=== PATIENT | female | born 2000 | race Caucasian/White ===

== ENCOUNTER 2024-04-20 21:23 | Emergency (ER) | payer OTHER, SELFPAY ==
[2024-04-20 21:27] VITALS: BP 163/92
[2024-04-20 22:04] LABS: HCG, Urine Qualitative Screen Negative; Urine Albumin Negative (Neg - Trace); Urine Bilirubin Negative (Negative); Urine Character Clear (Clear); Urine Color Yellow; Urine Glucose Negative (Negative); Urine Ketone Negative (Negative); Urine Leukocyte Negative (Negative); Urine Nitrite Positive (Negative); Urine Occult Blood Negative (Negative); Urine Specific Gravity 1.005 (<1.030); Urine Urobilinogen Negative (Neg - 1+)
[2024-04-20 22:05] LABS: % Basophils 0.6 % (0-2); % Eosinophils 1.5 % (0-6); % Immature Granulocytes 0.3 % (0-0.5); % Lymphocytes 15.9 % (20.5-51.1); % Monocytes 7.8 % (1.7-9.3); % Neutrophils 73.9 % (42.2-75.2); Absolute Basophils 0.1 10^3/uL (0-0.2); Absolute Eosinophils 0.2 10^3/uL (0-0.7); Absolute Neutrophils 9.2 10^3/uL (1.4-6.5); Hematocrit 32.9 % (37.0-47.0); Hemoglobin 11.5 g/dL (12.0-16.0); Mean Corpuscular Hgb 30.3 pg (27.0-31.0); Mean Corpuscular Volume 86.8 fL (81.0-99.0); Mean Platelet Volume 9.4 fL (7.4-10.4); Nucleated Red Blood Cells % 0 %; Platelet Count 280 10^3/uL (130-400); Red Blood Cell Count 3.79 10^6/uL (4.20-5.40); Red Cell Dist. Width 12.2 % (11.5-14.5); White Blood Cell Count 12.4 10^3/uL (4.8-10.8)
[2024-04-20 22:12] LABS: Urine Red Blood Cell None Seen /HPF (0-2); Urine White Cell 0-2 /HPF (0-5)
[2024-04-20 22:33] LABS: ALT (SGPT) 24 U/L (0-35); AST (SGOT) 44 U/L (14-36); Albumin 4.6 g/dl (3.5-5.0); Alkaline Phosphatase 59 U/L (38-126); Blood Urea Nitrogen 12 mg/dl (7-17); Carbon Dioxide 25 mmol/L (22-30); Chloride 102 mmol/L (98-107); Glucose 93 mg/dl (70-99); Potassium 3.8 mmol/L (3.5-5.1); Sodium 139 mmol/L (135-145); Total Bilirubin 0.7 mg/dl (0.2-1.3); Total Protein 7.3 g/dl (6.3-8.2); eGFR > 60.00
[2024-04-20] MEDS: ZOFRAN 4 MG IV (22:42)
[2024-04-20] MEDS: MORPHINE SULFATE 4 MG IV (22:42)
[2024-04-20] MEDS: OMNIPAQUE 50 ML PO (22:43)
[2024-04-20 22:53] VITALS: BP 130/94
[2024-04-21] MEDS: MORPHINE SULFATE 4 MG IV (00:38)
--- NOTE | 2024-04-21 01:55 | ED.GENMED ---
History of Present Illness
General
Chief Complaint: Abdominal Pain
Time Seen by Provider: 04/20/24 21:39
History of Present Illness
History of Present Illness:
23-year-old female presents emerged from complaining of right lower quadrant abdominal pain for the past 1 to 2 days. No fevers. Nausea.
Past History
Social History
Tobacco: Non-smoker
Alcohol: None
Phy Exam
Physical Exam
Physical Exam:
Physical Exam
General: no apparent distress, not acutely ill
Neck: supple. no meningeal signs. normal posterior pharynx
Heart: s1/s2 regular rate and rhythm, no murmur. equal radial
pulses.
HEENT: Pupils equal round reactive to light, EOMI
Lungs: no acute respiratory distress. clear bilaterally
Abdomen: normal bowel sounds. Right lower quadrant tenderness, no rebound or guarding. no CVAT
Neuro: alert and oriented. no focal neurological deficits cranial nerves II through XII intact
Skin: no rash
Psychiatric: well kept. interactive and cooperative
Extremities: no edema. no calf tenderness. negative homans. good distal pulses
Course
Orders/Labs/Results
Orders:
Orders
04/20/24 21:44
IV Insert/Care/Rem.- Treatment PRN
04/20/24 21:45
Test Result ONCE
04/20/24 21:57
Complete Blood Count/With Diff Urgent
Comprehensive Metabolic Panel Urgent
HCG, Urine Qualitative Screen Urgent
Date Specimen was Collected: 04/20/24
Time Specimen was Collected: 21:55
Urinalysis Reflex To Culture Urgent
Date Specimen was Collected: 04/20/24
Time Specimen was Collected: 21:55
Urine Microscopic Reflex Cult Urgent
Urine Culture Urgent
ALON Source: U
Specimen Description:
Date Specimen was Collected: 04/20/24
Time Specimen was Collected: 21:55
04/20/24 21:58
Iohexol [Omnipaque] See Protocol PO NOW STA
Morphine Sulfate 4 mg IV NOW STA
Ondansetron Injectable [Zofran] 4 mg IV NOW STA
US Abdomen - Appendix Only Urgent
Comment:
Reason For Exam: RLQ abd pain
04/21/24 00:26
Morphine Sulfate 4 mg IV NOW STA
04/21/24 00:45
CT Abd/pel W Iv And Oral Contr Urgent
Reason For Exam: RLQ abd pain
04/21/24 01:31
CefTRIAXone [Rocephin] 1,000 mg IV NOW STA
Abnormal Lab Results
04/20/24
21:57
WBC 12.4 H 10^3/uL
(4.8-10.8)
RBC 3.79 L 10^6/uL
(4.20-5.40)
Hgb 11.5 L g/dL
(12.0-16.0)
Hct 32.9 L %
(37.0-47.0)
Absolute Neuts (auto) 9.2 H 10^3/uL
(1.4-6.5)
Absolute Monos (auto) 1.0 H 10^3/uL
(0.1-0.6)
Lymphocytes % 15.9 L %
(20.5-51.1)
Creatinine 1.1 H mg/dL
(0.6-1.0)
AST 44 H U/L
(14-36)
Urine Nitrite (Reflex) Positive A
(Negative)
04/20/24 21:57
04/20/24 21:57
Vital Signs
Initial and Last Documented VS:
Initial Vital Signs
Temp Pulse Resp BP Pulse Ox
98.4 F 94 16 163/92 99
04/20/24 21:27 04/20/24 21:27 04/20/24 21:27 04/20/24 21:27 04/20/24 21:27
Last Documented Vital Signs
Temp Pulse Resp BP Pulse Ox
97.9 F 85 20 130/94 96
04/20/24 22:53 04/20/24 22:53 04/20/24 22:53 04/20/24 22:53 04/20/24 22:53
MDM/Problems Addressed
Differential Diagnosis Includes:
Appendicitis, pyelonephritis, kidney stone
MDM/Problems Addressed:
23-year-old female with pyelonephritis. No signs appendicitis. Treat with rocephin and keflex. F/u with primary care. Return precautions given.
Acute Exacerbation and/or Progression of Chronic Illness: Other (interstitial cystitis)
*Radiology
Radiology exam reviewed: radiology read reviewed (CT abdomen pelvis shows pyelonephritis)
*Pulse Oximetry
Patient hypoxic: no
*Critical Care Note
Total Time (30-74mins, 75-104mins- exclusive of procedures): Not Applicable
Patient Management
Social determinants of health affecting care: Living situation and Strong social support
Escalation/DeEscalation of care consider admission/obs:
Admit not indicated
ED Attending Note
-
Portions of this chart may have been created with voice recognition software.� Occasional wrong word or��sound alike� substitutions may have occurred due to the inherent limitations of voice recognition software.
Discharge Plan
Departure
Patient Disposition: Home (Routine Discharge)
Date of Disposition: 04/21/24
Time of Disposition: 01:58
Patient with high blood pressure during this ER visit?: Yes
Condition: Good
Discharge Problem:
Pyelonephritis
Instructions: Urinary tract infections in adults, BLOOD PRESSURE
Prescriptions:
New
cephalexin 500 mg capsule
500 mg PO BID 7 Days Qty: 14 0RF
No Action
multivitamin [One Daily Multivitamin] 1 EACH tablet
1 tab PO DAILY
Vitamin D
1 tab PO DAILY
sulfamethoxazole-trimethoprim 800 MG/160 MG tablet
1 tab PO BID Qty: 10 0RF
ciprofloxacin HCl [Cipro] 250 MG tablet
250 mg PO BID 3 Days 0RF
phenazopyridine [Pyridium] 100 MG tablet
100 mg PO Q8HPRN PRN (Reason: urinary pain) Qty: 7 0RF
ciprofloxacin HCl 250 MG tablet
250 mg PO BID Qty: 10 0RF
sulfamethoxazole-trimethoprim 1 TABLET tablet
1 tab PO BID Qty: 20 0RF
Referrals:
RAIMUNDO BRADFORD MD [Family Provider] - Call in 1-3 days for appt
Interventions
Interventions:
*Risk Screen - Suicide Last Done: 04/20/24 21:27
*General Assessment Last Done: 04/20/24 21:27
*Neglect/Abuse Screening Last Done: 04/20/24 21:27
ED- Fall Risk Assessment Last Done: 04/20/24 21:59
PT-Fghjei-Djhbevlicp Assessment Last Done: 04/20/24 21:56
Discharge Date and Time
Print Language: NAMIBIAN
[2024-04-21] MEDS: ROCEPHIN 1000 MG IV (01:58)
[2024-04-21 02:37] VITALS: BP 128/88
== END 2024-04-21 02:38 | disposition home or self-care (01) ==
LOC: EMR 21:23
PROVIDERS: EMERGENCY PHYSICIAN Emergency Medicine; FAMILY PHYSICIAN Student in an Organized Health Care Education/Training Program
DX: N12 Tubulo-interstitial nephritis, not specified as acute or chronic (principal)
CPT/HCPCS: 96374; 96375; 96376; 99284; 74177; 76705; 80053; 81003; 81015; 81025; 85025; 87086; Q9967